=== PATIENT | female | born 1950 | race Caucasian/White ===

== ENCOUNTER 2018-08-16 09:22 | Emergency (ER) | payer BC, OTHER ==
[2018-08-16 10:13] VITALS: BP 151/75
--- NOTE | 2018-08-16 10:28 | UC ---
UC General HPI - HPI Summary HPI Summary: PT IS C/O PAIN FROM HER R BUTTOCK INTO HER R THIGH SINCE TUESDAY PM. SHE THINKS IT IS "SCIATICA". SHE DESCRIBES IT A TOOTHACHE. NO HX INJURY BUT WAS DURING HOUSE WORK THE DAY IT BEGAN. NO FEVER, ABDOMINAL PAIN, SADDLE ANESTHESIA, WEAKNESS TO HER ARMS/LEGS. NO BOWEL/BLADDER DYSFUNCTION. RELIEF WITH AN OTC ALEVE AND ICE. - History of Current Complaint Chief Complaint: UCBackPain Stated Complaint: RT HIP/KNEE PAIN Time Seen by Provider: 08/16/18 10:21 Hx Obtained From: Patient Pain Intensity: 6 - Allergy/Home Medications Allergies/Adverse Reactions: Allergies Allergy/AdvReac Type Severity Reaction Status Date / Time No Known Allergies Allergy Verified 08/16/18 10:15 Home Medications: Home Medications Aspirin [Adult Aspirin Regimen] 81 mg PO DAILY 08/16/18 [History Confirmed 08/16] Atorvastatin* [Lipitor*] 10 mg PO 1700 08/16/18 [History Confirmed 08/16/18] Cholecalciferol (Vitamin D3) [Vitamin D3] 2,000 unit PO DAILY 08/16/18 [History Confirmed 08/16/18] Cranberry 300 mg PO DAILY 08/16/18 [History Confirmed 08/16/18] Loratadine 10 mg PO DAILY 08/16/18 [History Confirmed 08/16/18] Losartan Potassium [Cozaar] 50 mg PO DAILY 08/16/18 [History Confirmed 08/16/18] Multivitamin [Multivitamins] 1 cap PO DAILY 08/16/18 [History Confirmed 08/16/18 ] Sertraline* [Zoloft*] 100 mg PO BID 08/16/18 [History Confirmed 08/16/18] PMH/Surg Hx/FS Hx/Imm Hx Endocrine History: Dyslipidemia Cardiovascular History: Hypertension Psychological History: Anxiety - Surgical History Surgical History: None - Family History Known Family History: Positive: Non-Contributory - Social History Alcohol Use: None Substance Use Type: None Smoking Status (MU): Light Every Day Tobacco Smoker Type: Cigarettes Review of Systems All Other Systems Reviewed And Are Negative: Yes Constitutional: Negative: Fever Skin: Negative: Rash Gastrointestinal: Negative: Abdominal Pain Musculoskeletal: Negative: Decreased ROM Neurological: Negative: Weakness Physical Exam Triage Information Reviewed: Yes Appearance: Well-Appearing Vital Signs: Initial Vital Signs Temp 98.6 F 08/16/18 10:06 Pulse 89 08/16/18 10:06 Resp 16 08/16/18 10:06 BP 151/75 08/16/18 10:06 Pulse Ox 96 08/16/18 10:06 Vital Signs Reviewed: Yes Eyes: Positive: Conjunctiva Clear Neck: Positive: Supple, Nontender Respiratory: Positive: Lungs clear, Normal breath sounds, No respiratory distress Cardiovascular: Positive: RRR, No Murmur Abdomen Description: Positive: Nontender, No Organomegaly, Soft. Negative: Distended, Guarding, Pulsatile Mass Musculoskeletal: Positive: Other: - BACK/PELVIS: NO RASH, DEFORMITY OR SWELLING. SPINE IS NON TENDER AND ROM INTACT. PELVIS IS NON TENDER AND HIP ROM INTACT AND PAINLESS. R BUTTOCK IS TENDER, REPRODUCES PT'S DISCOMFORT/ACHE INTO R THIGH. NEGATIVE STRAIGHT LEG RAISES. NO SADDLE ANESTHESIA. 5/5 STRENGTH, 2+ REFLEXES, SENSATION INTACT X4. NORMAL STEADY GAIT. Neurological: Positive: Alert Psychological: Positive: Age Appropriate Behavior Skin Exam: Normal Skin: Negative: Rashes Course/Dx - Differential Dx - Multi-Symptom Differential Diagnoses: Other - NO CONCERN FOR FX, ACUTE ABDOMEN, SADDLE ANESTHESIA OR CAUDA EQUINA. - Diagnoses Provider Diagnosis: Sciatica Discharge - Sign-Out/Discharge Documenting (check all that apply): Patient Departure All imaging exams completed and their final reports reviewed: No Studies - Discharge Plan Condition: Stable Disposition: HOME Prescriptions: Cyclobenzaprine TAB* [Flexeril 10 MG TAB*] 10 mg PO TID PRN #10 tab PRN Reason: Pain - Back Patient Education Materials: Sciatica (ED) Referrals: Alpa Vance [Primary Care Provider] - 7 Days Additional Instructions: TAKE ONE 220MG DOSE OF OVER THE COUNTER ALEVE TWICE DAILY FOR 5 DAYS. - Billing Disposition and Condition Condition: STABLE Disposition: Home
== END 2018-08-16 10:41 | disposition home or self-care (01) ==
LOC: UCCORT 09:22
DX: M54.30 Sciatica, unspecified side (principal); I10 Essential (primary) hypertension; E78.5 Hyperlipidemia, unspecified; F41.9 Anxiety disorder, unspecified; F17.210 Nicotine dependence, cigarettes, uncomplicated
CPT/HCPCS: 99202; G0463